=== PATIENT | male | born 1985 | race Hispanic/Latino ===

== ENCOUNTER 2017-08-09 12:59 | Emergency (ER) | payer SELFPAY | END 2017-08-09 13:31 | disposition home or self-care (01) | LOC: ERS 12:59 | DX: K02.9 Dental caries, unspecified (principal); F17.210 Nicotine dependence, cigarettes, uncomplicated | CPT/HCPCS: 99282 ==

== ENCOUNTER 2018-09-12 09:24 | Emergency (ER) | payer SELFPAY ==
--- NOTE | 2018-09-12 11:33 | RAD ---
LEFT WRIST THREE VIEWS: History: Left wrist pain. FINDINGS: Carpals are normally aligned. No evidence of fracture seen. IMPRESSION: No acute findings. POS: [facility]
== END 2018-09-12 11:56 | disposition home or self-care (01) ==
LOC: ERS 09:24
DX: G56.02 Carpal tunnel syndrome, left upper limb (principal); F17.210 Nicotine dependence, cigarettes, uncomplicated

== ENCOUNTER 2018-10-01 13:19 | Emergency (ER) | payer SELFPAY ==
--- NOTE | 2018-10-01 14:39 | RAD ---
RIGHT HAND 3 VIEWS: HISTORY: Swelling and injury. There is some slight foreshortening and deformity of the distal 5th metacarpal which has more of an o ld appearance. No evidence for acute fracture or dislocation. No evidence for metal density foreign body. IMPRESSION: Minimal foreshortening of the distal 5th metacarpal which has more of an old appearance. No acute fr acture or dislocation. POS: OFF
[2018-10-01] MEDS ORDERED: Adacel (T-DAP) 0.5 ML SYRINGE ONE (15:21)
== END 2018-10-01 16:11 | disposition home or self-care (01) ==
LOC: ERS 13:19
DX: S61.212D Laceration without foreign body of right middle finger without damage to nail, subsequent encounter (principal); F17.210 Nicotine dependence, cigarettes, uncomplicated
CPT/HCPCS: 90471; 90715

== ENCOUNTER 2018-10-02 11:05 | Emergency (ER) | payer SELFPAY | END 2018-10-02 13:03 | disposition home or self-care (01) | LOC: ERS 11:05 | DX: T81.30XA Disruption of wound, unspecified, initial encounter (principal); F17.210 Nicotine dependence, cigarettes, uncomplicated | CPT/HCPCS: 99282 ==